=== PATIENT | female | born 1950 | race Caucasian/White ===

== ENCOUNTER 2022-09-05 14:52 | Outpatient (CLI) | payer OTHER, SELFPAY ==
--- NOTE | 2022-09-05 15:00 | CRLHL7_ITS ---
For Patients: As a result of the Century Cures Act, medical imaging exams and procedure reports are released immediately into your electronic medical record. You may view this report before your referring provider. If you have questions, please contact your health care provider. CLINICAL HISTORY: Uterovaginal prolapse, unspecified TECHNIQUE: 2D almodovar scale and color Doppler images were acquired of the pelvis using a transvaginal approach. FINDINGS: On transvaginal imaging, the myometrium has a heterogeneous echotexture. The endometrial lining measures 3 mm in thickness. The left ovary measures 2.1 x 1.0 x 1.1 cm in size and the right ovary measures 2.6 x 1.6 x 2.1 cm. The ovaries demonstrate normal arterial and venous blood flow on color Doppler analysis. 1.5 centimeters simple cyst right ovary. There are no suspicious fluid collections within the cul-de-sac. IMPRESSION: No uterine fibroids. Dictated by Foreign Romano MD @ 09/05/2022 4:16:18 PM (Electronically Signed)
== END 2022-09-05 14:53 | disposition home or self-care (01) ==
LOC: US 14:53
PROVIDERS: PCP Family Medicine; Visit Provider Obstetrics & Gynecology
DX: N81.4 Uterovaginal prolapse, unspecified (principal)
CPT/HCPCS: 76830